=== PATIENT | male | born 1940 | race Caucasian/White ===

== ENCOUNTER 2023-08-19 19:26 | Emergency (ER) | payer OTHER ==
[~2023-08-19] VITALS: Ht 172.7 cm; Wt 68.2 kg
[2023-08-19 21:04] LABS: Basophils # (auto) 0.1 10 ^3/uL (0-0.2); Basophils % (auto) 2.1 % (0.0-2.0); Eosinophils # (auto) 0.5 10 ^3/uL (0-0.8); Eosinophils % (auto) 9.4 % (0.0-7.0); Hematocrit 32.1 % (41.0-53.0); Hemoglobin 10.2 g/dL (13.5-17.5); Lymphocytes # (auto) 0.8 10 ^3/uL (0.4-5.4); Lymphocytes % (auto) 16.6 % (10.0-50.0); Mean Corpuscular Hemoglobin 27.8 pg (28.0-32.0); Mean Corpuscular Hgb Conc. 31.8 g/dL (32.0-36.0); Mean Corpuscular Volume 87.4 fL (80.0-100.0); Monocytes # (auto) 0.5 10 ^3/uL (0-1.3); Monocytes % (auto) 9.8 % (0.0-12.0); Neutrophils % (auto) 62.1 % (37.0-80.0); Red Blood Cells 3.67 10^6/uL (4.5-5.90); Red Cell Distribution Width 18.6 % (11.8-14.3); White Blood Cell 4.9 10^3/uL (4.4-10.8)
[2023-08-19 21:12] LABS: Alanine Aminotransferase 18 U/L (7-40); Albumin 3.6 g/dL (3.2-4.8); Alkaline Phosphatase 253 U/L (46-116); Anion Gap 10 (5-15); Aspartate Aminotransferase 22 U/L (13-40); BUN/Creatinine Ratio 14.3 (10.0-20.0); Bilirubin, Total 1.3 mg/dL (0.2-1.0); Blood Urea Nitrogen 24 mg/dL (9-23); Calcium 9.3 mg/dL (8.5-10.1); Carbon Dioxide 24 mmol/L (20-30); Chloride 99 mmol/L (98-107); Glucose 167 mg/dL (74-106); Potassium 3.7 mmol/L (3.5-5.1); Sodium 133 mmol/L (136-145)
[2023-08-20] MEDS ORDERED: ONDANSETRON HCL 4 MG/2 ML VIAL IV ONE (04:30)
[2023-08-20] MEDS ORDERED: MORPHINE SULFATE 4 MG/ML SYR/VIAL IV ONE (04:30)
[2023-08-20 04:35] VITALS: PULSE 64; RESP 16; O2SAT 94
[2023-08-20] MEDS ORDERED: ONDANSETRON HCL 4 MG/2 ML VIAL ONE (05:01)
[2023-08-20] MEDS ORDERED: MORPHINE SULFATE 4 MG/ML SYR/VIAL ONE (05:01)
[2023-08-20 07:51] LABS: Urine Bacteria NONE SEEN /hpf (None Seen); Urine Blood 3+ /uL (Negative); Urine Clarity CLOUDY (Clear); Urine Color Brown (Yellow); Urine Protein, UAD 2+ (Negative); Urine WBC 3570 /hpf (0 - 3); Urine WBC Clumps PRESENT /hpf (None Seen)
[2023-08-20 08:10] LABS: Urine Specific Gravity 1.015 (1.001-1.035)
[2023-08-20 09:51] LABS: INR 3.88 (0.9-1.15); Partial Thromboplastin Time 58.5 SEC (24.5-34.5); Prothrombin Time 37.3 sec (9.3-11.8)
[2023-08-20] MEDS ORDERED: cefTRIAXone 1GM/50ML D5W 50 ML IV ONE (16:00)
[2023-08-20 18:51] VITALS: BP 133/60; PULSE 60; RESP 17; TEMP 98; O2SAT 92
== END 2023-08-20 19:33 | disposition home or self-care (01) ==
LOC: EDBD 19:26 → ER 19:26
DX: S39.012A Strain of muscle, fascia and tendon of lower back, initial encounter (principal); M54.2 Cervicalgia; I10 Essential (primary) hypertension; R53.1 Weakness; Z79.01 Long term (current) use of anticoagulants; X58.XXXA Exposure to other specified factors, initial encounter; Y93.89 Activity, other specified; Y92.89 Other specified places as the place of occurrence of the external cause; Y99.8 Other external cause status
CPT/HCPCS: 36415; 70450; 71250; 72125; 72131; 74176; 80053; 81001; 82962; 85025; 85610; 85730; 93005; 96374; 96375; 99285; J2270; J2405